=== PATIENT | female | born 1965 | race Caucasian/White ===

== ENCOUNTER 2017-11-14 15:01 | Emergency (ER) | END 2017-11-14 17:33 | disposition home or self-care (01) ==

== ENCOUNTER 2017-12-16 06:05 | Day surgery (SDC) | END 2017-12-16 10:21 | disposition home or self-care (01) ==

== ENCOUNTER 2017-12-23 14:03 | Emergency (ER) | END 2017-12-23 17:23 | disposition home or self-care (01) ==

== ENCOUNTER 2018-01-05 16:01 | Emergency (ER) | END 2018-01-05 18:06 | disposition home or self-care (01) ==

== ENCOUNTER 2018-01-28 14:28 | Emergency (ER) | END 2018-01-28 16:24 | disposition home or self-care (01) ==

== ENCOUNTER 2018-03-08 13:15 | Emergency (ER) | END 2018-03-08 14:48 | disposition home or self-care (01) ==